=== PATIENT | female | born 1995 | race Caucasian/White ===

== ENCOUNTER 2016-09-15 18:54 | Emergency (ER) | payer SELFPAY ==
[2016-09-15] MEDS ORDERED: CEFTRIAXONE 1 GM VIAL ONE (21:28)
[2016-09-15] MEDS ORDERED: SODIUM CHLORIDE 0.9% 100 ML IV ONE (21:28)
[2016-09-15] MEDS ORDERED: KETOROLAC 30 MG/ML VIAL ONE (21:28)
== END 2016-09-15 22:22 | disposition home or self-care (01) ==
LOC: ER 18:54
DX: N30.00 Acute cystitis without hematuria (principal); R74.0 Nonspecific elevation of levels of transaminase and lactic acid dehydrogenase [LDH]
CPT/HCPCS: 36415; 74000; 80053; 81001; 81025; 85025; 87077; 87088; 87186; 96365; 96375